=== PATIENT | female | born 1990 ===

== ENCOUNTER 2019-12-07 09:13 | Outpatient (CLI) | payer BC ==
--- NOTE | 2019-12-07 10:53 | CT ---
CT ABDOMEN AND PELVIS WITH IV CONTRAST 12/07/2019 CLINICAL INFORMATION: Left-sided abdominal pain over last 2 weeks. Left upper quadrant abdominal pain. Irritable bowel synd veronica. COMPARISON: None. Technique: Multiple contiguous axial CT images are obtained through the abdomen and pelvis with IV contrast. Cor onal reformatted images are provided. FINDINGS: Lower Chest: Lung bases are clear. Vessels: Abdominal aorta is normal in caliber. Abdomen: Portal vein:Patent Gallbladder: Within normal limits for CT imaging. Liver: within normal limits. Spleen: within normal limits. Pancreas: within normal limits. Adrenals: within normal limits. Kidneys: within normal limits. Bowel: Normal caliber. Appendix: The appendix is visualized and normal in caliber. Peritoneum: Trace free fluid is seen in the pelvis which may be physiologic. No fluid collection is s een in the abdomen or pelvis Mesentery and Retroperitoneum: There is nonspecific increase in number of mesenteric, aortocaval, and iliac chain lymph nodes. A proximal right iliac chain lymph node measures 1.3 cm in short axis dimension which is mildly enlarged. Abdominal Wall: within normal limits. Pelvis: Reproductive Organs: No pelvic masses. Bladder: Partially distended and normal in appearance. Bones: Slightly sclerotic osseous density is seen in the proximal subtrochanteric region left proxima l femur likely due to low-grade chondroid lesion. IMPRESSION: 1. Increased number of mesenteric, aortocaval, and iliac chain lymph nodes with mild enlargement of a proximal right external iliac chain lymph node measuring 1.3 cm in short axis dimension compatible with lymphadenopathy. Exact etiology is uncertain. This could be reactive in origin. Neoplastic proce ss such as lymphoma cannot be entirely excluded.. 2. Prominence in the region of the cervix with heterogeneity of the uterus. While findings could be i n part be related to phase of enhancement, further evaluation with pelvic ultrasound and direct visualization of the cervix is recommended. 3. Trace free fluid in the pelvis. 4. No CT evidence of appendicitis.
== END 2019-12-07 09:14 | disposition home or self-care (01) ==
LOC: SCSCT 09:13
PROVIDERS: ATTEND Physician Assistant Medical
DX: R10.12 Left upper quadrant pain (principal); K58.9 Irritable bowel syndrome, unspecified; R59.0 Localized enlarged lymph nodes
CPT/HCPCS: 74177